=== PATIENT | female | born 1990 | race Caucasian/White ===

== ENCOUNTER → 2017-03-02 | Outpatient (CLI) | payer OTHER ==
--- NOTE | 2017-03-02 16:09 | KCIC ---
PROCEDURE CT head without contrast. HISTORY Closed head injury, struck in head with metal door today. Vertical steve center of forehead by hairline. TECHNIQUE Helical CT imaging of the brain is performed without IV contrast. PQRS: One or more the following individualized dose reduction techniques were utilized for the study: 1. Automated exposure control. 2. Adjustment of the mA and/or kV according to patient size. 3. Use of iterative reconstruction technique. COMPARISON None. FINDINGS There is no midline shift or mass effect. No extra-axial fluid collection or intraparenchymal hemorrhage. Gates-white matter differentiation is preserved. Ventricles and sulci are normal for patient age. Moderate mucosal thickening left maxillary sinus. Maxillary sinuses incompletely imaged. The other visualized paranasal sinuses and mastoid air cells are clear. The globes and orbits appear intact. No acute calvarial abnormality. 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 IMPRESSION No acute intracranial abnormality. Electronically signed by: Joshua Turpin MD (Mar 02, 2017 16:08:09)
== END | disposition home or self-care (01) ==
LOC: KCIC CT 15:45
PROVIDERS: ATTEND Preventive Medicine Occupational Medicine
DX: S06.0X9A Concussion with loss of consciousness of unspecified duration, initial encounter (principal); R51 Headache; W19.XXXA Unspecified fall, initial encounter; Y93.89 Activity, other specified; Y92.89 Other specified places as the place of occurrence of the external cause; Y99.8 Other external cause status
CPT/HCPCS: 70450